=== PATIENT | male | born 1990 | race Caucasian/White ===

== ENCOUNTER → 2017-04-23 09:27 | Outpatient (CLI) | payer OTHER, SELFPAY ==
--- NOTE | 2017-04-23 09:35 | RAD_ITS ---
STUDY: X-RAY - LEFT KNEE REASON FOR EXAM: Male, 27 years old. Left knee pain TECHNIQUE: 4 view(s) of the knee. COMPARISON: None. FINDINGS: Normal visualized distal femur. Normal visualized proximal tibia and fibula. Normal proximal tibiofibular articulation. Normal medial femorotibial compartment. Normal lateral femorotibial compartment. Normal patellofemoral articulation. The soft tissue structures are unremarkable. RAD/Knee 4 or More Views IMPRESSION: Normal x-ray examination of the knee. Electronically Signed: Sridhar Deras DO at 13:11 EST Tel , Service support ,
== END ==
PROVIDERS: Family Provider Family Medicine; PCP Family Medicine; Visit Provider Family Medicine
DX: M22.2X9 Patellofemoral disorders, unspecified knee (principal)
CPT/HCPCS: 73564

== ENCOUNTER → 2022-09-16 | Outpatient (CLI) | payer OTHER, SELFPAY ==
--- NOTE | 2022-09-16 13:30 | VAS_PTH ---
PATIENT: RODERICK CEJA LOC: [facility] U#:[id number] AGE/SX: 32/M ROOM: RE09/16/[address]: Dr. Raj Lovell MD : 1990 BED: DIS: 09/16/2022 SPEC #: [id number] RECD: 09/16/22 16:05 STATUS: BRITT REYelena #: [id number] JASS: 09/16/22 13:[address]: Raj Lovell DEPT: SURGICAL PATHOLOGY RECD BY: Jill Hagen ENTERED: 09/17/22 08:47 SP TYPE: VAS OTHR DR: Dr. Isreal Hobbs MD Tissues: A - Vas deferens, NOS B - Vas deferens, NOS Procedures: Surgery Specimen Level II HEADER OPERATION: Bilateral partial vasectomy PRE-OP DIAGNOSIS: Sterilization TISSUE SUBMITTED: A ? Left vas deferens, B ? Right vas deferens MICROSCOPIC DIAGNOSIS A. Left vas deferens, segmental vasectomy: Complete cross-section of vas deferens with no pathologic change. B. Right vas deferens, segmental vasectomy: Complete cross-section of vas deferens with no pathologic change. AM:axel 09/18/2022 MICROSCOPIC DESCRIPTION Slides are reviewed. GROSS DESCRIPTION A - Received is one container designated left vas deferens. The specimen consists of a cylindrical segment of pink-chahal soft tissue measuring 0.2 cm in length and 0.1 cm in maximum diameter. The specimen is serially sectioned and totally submitted in one cassette. B - Received is one container designated right vas deferens. The specimen consists of a cylindrical segment of pink-chahal soft tissue measuring 0.5 cm in length and 0.1 cm in maximum diameter. The specimen is serially sectioned and totally submitted in one cassette. / AM:axel 09/17/2022 TC:4 CPT: 52334 x2
== END | disposition home or self-care (01) ==
LOC: LABSPEC 16:14
PROVIDERS: PCP Family Medicine; Referring Provider Surgery; Visit Provider Surgery
DX: Z98.52 Vasectomy status (principal)
CPT/HCPCS: 88302

== ENCOUNTER 2022-11-09 15:37 | Outpatient (CLI) | payer OTHER, SELFPAY ==
[2022-11-09 18:06] LABS: Semen Analysis Post Vas PATH REVIEW ONLY
[2022-11-10 13:11] LABS: Pathologist Review Reviewed
== END 2022-11-09 23:59 | disposition home or self-care (01) ==
LOC: LABSPEC 15:39
PROVIDERS: PCP Family Medicine; Referring Provider Surgery; Visit Provider Surgery
DX: Z98.52 Vasectomy status (principal)
CPT/HCPCS: 89321

== ENCOUNTER → 2022-11-13 | Outpatient (CLI) | payer OTHER, SELFPAY ==
[2022-11-13 19:25] LABS: Semen Analysis Post Vas PATH REVIEW ONLY
[2022-11-16 13:15] LABS: Pathologist Review Reviewed
== END | disposition home or self-care (01) ==
LOC: LABSPEC 17:35
PROVIDERS: Surgery; PCP Family Medicine; Referring Provider Surgery; Visit Provider Surgery
DX: Z30.2 Encounter for sterilization (principal)
CPT/HCPCS: 89321

== ENCOUNTER → 2022-11-18 | Outpatient (CLI) | payer OTHER, SELFPAY ==
--- NOTE | 2022-11-18 17:00 | RAD_ITS ---
INDICATION: Trauma, injury, laceration of left third digit nail EXAMINATION/TECHNIQUE: X-RAY - LEFT HAND XR Fingers Min 2 Views 4 VIEWS COMPARISON: None. FINDINGS: SOFT TISSUES: No soft tissue swelling or gas. No radiopaque foreign body. BONES/JOINTS: Nondisplaced fracture distal tuft third digit. Joint spaces anatomically aligned. No sclerotic or destructive changes observed. RAD/Finger(s) Min 2 Views IMPRESSION: Nondisplaced fracture distal tuft third digit. Electronically Signed: Gregory Levine MD at 17:56 EDT ,
== END | disposition home or self-care (01) ==
LOC: MTRAD 16:57
PROVIDERS: Referring Provider Physician Assistant; Visit Provider Physician Assistant
DX: S61.213A Laceration without foreign body of left middle finger without damage to nail, initial encounter (principal)
CPT/HCPCS: 73140

== ENCOUNTER → 2022-12-02 | Outpatient (CLI) | payer OTHER, SELFPAY ==
[2022-12-02 11:39] LABS: Semen Analysis Post Vas PATH REVIEW ONLY
[2022-12-03 13:18] LABS: Pathologist Review Reviewed
[2022-12-04 18:25] LABS: Semen Analysis Post Vas PATH REVIEW ONLY
[2022-12-07 13:01] LABS: Pathologist Review Reviewed
== END | disposition home or self-care (01) ==
LOC: LABSPEC 10:01
PROVIDERS: Visit Provider Surgery
DX: Z30.2 Encounter for sterilization (principal)
CPT/HCPCS: 89321